=== PATIENT | male | born 1965 | race Caucasian/White ===

== ENCOUNTER 2020-06-09 23:06 | Emergency (ER) | payer BC, SELFPAY ==
[2020-06-09 23:08] VITALS: BP 164/92; PULSE 108; RESP 20; TEMP 36.7; O2SAT 94; BMI 40.4
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
[2020-06-09] MEDS: acetaminophen 500 mg Tablet 1000 MG PO (23:22)
[2020-06-09 23:34] VITALS: BP 164/92; RESP 18; O2SAT 96
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
[2020-06-10 01:09] VITALS: BP 154/82; PULSE 87; RESP 16; O2SAT 99
--- NOTE | 2020-06-14 11:08 | DCPLANNER ---
motor hotel manager was asked to schedule a follow up appointment for patient with a hand specialist in [place]. motor hotel manager faxed patients records to [facility] in [place] for review. motor hotel manager called patient and left a voicemail with patients to return egg caser phone call. motor hotel manager wanted to inform patient that a referral had been sent and to expecting a phone call from the clinic with appointment information.
--- NOTE | 2020-06-17 14:56 | DCPLANNER ---
Patient has a follow up appointment scheduled for Monday, June 29, 2020 at 12:[address] [place] [facility] [place] with appointment information.
--- NOTE | 2020-08-03 12:08 | DCPLANNER ---
Patient had a follow up appointment scheduled with [facility] - patient did attend the appointment.
== END 2020-06-10 01:11 | disposition home or self-care (01) ==
PROVIDERS: Emergency Provider Emergency Medicine; PCP Nurse Practitioner Family
DX: S06.0X0A Concussion without loss of consciousness, initial encounter (principal); S40.012A Contusion of left shoulder, initial encounter; Y04.8XXA Assault by other bodily force, initial encounter
CPT/HCPCS: 12345; 70450; 72125; 73030; 73110; 99282; 99283

== ENCOUNTER 2020-06-13 18:22 | Outpatient (CLI) | payer BC, SELFPAY ==
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
== END 2020-06-13 18:23 | disposition home or self-care (01) ==
LOC: RAD 18:23
PROVIDERS: PCP Nurse Practitioner Family; Visit Provider Family Medicine
DX: M25.532 Pain in left wrist (principal)
CPT/HCPCS: 73110

== ENCOUNTER 2022-11-11 14:37 | Emergency (ER) | payer BC, SELFPAY ==
[2022-11-11] VITALS (43 sets, daily range): BP systolic 142–188; BP diastolic 87–109; PULSE 58–80; RESP 0–22; TEMP 36.6; O2SAT 93–98; BMI 38.2
--- NOTE | 2022-11-11 14:39 | ECG_ITS ---
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 Measurements Intervals [place] Rate: 72 P: 20 AL: 164 QRS: -62 QRSD: 118 T: 45 QT: 407 QTc: 448 Interpretive Statements SINUS RHYTHM PATTERN CONSISTENT WITH PULMONARY DISEASE LEFT ANTERIOR FASCICULAR BLOCK [QRS AXIS <= -45, QR IN I, RS IN II] No previous ECG available for comparison Electronically Signed On 11-11-2022 20:05:11 CORRECTIONAL COOK by Sydnie Schaefer M.D. [id number]
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
--- NOTE | 2022-11-11 14:48 | W.ED.CHESTPA ---
HPI - Chest Pain General: Chief Complaint: Chest Pain Stated Complaint: CHEST PAIN Time Seen by Provider: 11/11/22 14:38 Source: patient Mode of arrival: EMS History of Present Illness: 56-year-old male presents emergency room with complaint of pain. He describes his pain was in his back radiating into the epigastrium and into his left upper quadrant and up into his chest. Just prior to that patient had been eating some fried jalapeno peppers. He has a history of reflux. He did receive 325 nitro on route he also had an inch of Nitropaste states the symptoms have resolved. 30 years ago evidently he had chest pain that ended up being diagnosed as GI and Sorcini a normal stress test. Is not had any issues since then. He has a history of hypertension he smokes occasional cigars he is diabetic. Prior to today had no other episodes of chest pain or discomfort. MD complaint: chest pain Onset (ago): minute(s) Timing of current episode: episodic Prior episodes: No Onset: during rest Pain location: other (Back) Pain radiation: other (Epigastrium left upper quadrant and chest) Quality: sharp Relieving factors: nitroglycerin Exacerbating factors: nothing Associated symptoms: Reports abdominal pain; Deny diaphoresis, dyspnea, fever(s), leg edema, nausea, palpitations, sense of impending doom, syncope or vomiting Treatment prior to arrival: aspirin and nitroglycerin Review of Systems Const: Denies: fever(s), chills, fatigue, malaise or diaphoresis ENMT: Denies: throat pain, ear or mastoid pain, nasal discharge or nasal congestion Card: Reports: chest pain; Denies: palpitations, irregular heart rhythm, edema, swelling of feet/ankles or syncope Resp: Denies: dyspnea, productive cough or non-productive cough GI: Reports: abdominal pain; Denies: nausea or vomiting : Denies: flank pain, dysuria, urinary frequency or urinary urgency Skin/Breast: Denies: rash or pruritus PFS ED PFSH: Medical History (Updated 11/19/22 @ 00:01 by JUDY Whitaker) GERD (gastroesophageal reflux disease) HTN (hypertension) Social History (Updated 11/11/22 @ 14:57 by Shayan Reyez DO) Smoking and tobacco status: current some day smoker cigars Cigar details: Occasional Alcohol intake: current Physical Exam Const: COMMON NORMALS: no acute distress GENERAL APPEARANCE: cooperative and comfortable ORIENTATION/CONSCIOUSNESS: Yes awake, Yes oriented to person, Yes oriented to place and Yes oriented to time HENMT: COMMON NORMALS: normocephalic, atraumatic and hearing grossly normal bilaterally HEAD & SCALP: normocephalic and atraumatic Eye: COMMON NORMALS: Equal, round and reactive pupils present, EOMs intact bilaterally, conjunctivae normal and no scleral icterus CONJUNCTIVA: Yes conjunctivae normal PUPIL: Yes Equal, round and reactive pupils present Neck/C-Spine: COMMON NORMALS: full ROM, no lymphadenopathy, supple and no JVD Lymph: LYMPHATIC: no lymphadenopathy noted and no lymphedema noted Resp: COMMON NORMALS: normal respiratory effort, No retractions, No use of accessory muscles and clear to auscultation bilaterally AUSCULTATION: clear to auscultation bilaterally Cardio: COMMON NORMALS: no JVD, regular rate, regular rhythm and No murmurs present (Cardio) RATE: regular rate RHYTHM: regular rhythm GI: COMMON NORMALS: Soft to palpation and No hepatosplenomegaly present AUSCULTATION: Yes normoactive bowel sounds PALPATION: Yes Soft to palpation, No Tenderness to palpation present (GI), No Guarding due to palpation present (GI) and Yes No hepatosplenomegaly present Extremity: COMMON NORMALS: normal to inspection, capillary refill normal, no clubbing, cyanosis or edema, no calf tenderness and no pedal edema Neuro: SENSORIUM/ORIENTATION: Yes oriented to person, Yes oriented to place and Yes oriented to time Skin: COMMON NORMALS: no rashes or lesions noted GENERAL SKIN EXAM: no rashes or lesions noted Course Vital Signs: Vital signs: Vital Signs Temperature 97.9 F 11/11/22 14:38 Pulse Rate 66 11/11/22 18:35 Respiratory Rate 10 L 11/11/22 18:35 Blood Pressure 162/104 11/11/22 18:40 Pulse Oximetry 96 11/11/22 18:35 Oxygen Delivery Me thod 11/11/22 15:17 MDM - Chest Pain Medical Decision Making Labs imaging and EKG reviewed as found in the chart no acute ST changes noted troponins unremarkable. Suspect may be more likely GI in nature. All with patient start metoprolol 40 mg daily. His blood pressure is also up. We will have him start isosorbide mononitrate 30 mg daily and baby aspirin daily. Avoid exertional activities Case management to make arrangements for outpatient stress testing return to the ER if has further problems. Medical Records I reviewed the patient's medical records. Lab Data I reviewed the patient's lab results. 11/11/22 15:10 11/11/22 15:10 Radiology Impressions Chest X-Ray 11/11/22 14:39 IMPRESSION: No acute findings. Laboratory Results WBC 12.1 10^3/uL (4.0-10.0) H 11/11/22 15:10 RBC 4.48 10^6/uL (4.1-5.3) 11/11/22 15:10 Hgb 14.9 g/dL (11.7-16.6) 11/11/22 15:10 Hct 44.1 % (42.0-52.0) 11/11/22 15:10 MCV 98.4 fl (80-94) H 11/11/22 15:10 MCH 33.3 pg (28.0-34.0) 11/11/22 15:10 MCHC 33.8 g/dL (30.0-36.0) 11/11/22 15:10 RDW 12.1 % (12.1-15.1) 11/11/22 15:10 Plt Count 207 10^3/cmm (130-400) 11/11/22 15:10 MPV 10.6 fL (7.4-10.4) H 11/11/22 15:10 Neut % (Auto) 75.9 % 11/11/22 15:10 Lymph % (Auto) 11.8 % 11/11/22 15:10 [place] % (Auto) 9.7 % 11/11/22 15:10 Eos % (Auto) 1.7 % 11/11/22 15:10 Baso % (Auto) 0.4 % 11/11/22 15:10 Neut # (Auto) 9.15 10^3/uL (1.8-7.7) H 11/11/22 15:10 Lymph # (Auto) 1.4 10^3/uL (0.8-4.8) 11/11/22 15:10 [place] # (Auto) 1.2 10^3/uL (0.2-0.9) H 11/11/22 15:10 Eos # (Auto) 0.2 10^3/uL (0.0-0.8) 11/11/22 15:10 Baso # (Auto) 0.1 10^3/uL (0.0-0.1) 11/11/22 15:10 Nucleated RBC % (auto) 0 % 11/11/22 15:10 Nucleated RBCs # 0.0 /100WBC 11/11/22 15:10 Sodium 139 mmol/L (136-145) 11/11/22 15:10 Potassium 4.2 mmol/L (3.5-5.1) 11/11/22 15:10 Chloride 103 mmol/L (98-107) 11/11/22 15:10 Carbon Dioxide 25 mmol/L (22-29) 11/11/22 15:10 Anion Gap 15.2 (5-19) 11/11/22 15:10 BUN 18 mg/dL (6-20) 11/11/22 15:10 Creatinine 1.0 mg/dL (0.7-1.2) 11/11/22 15:10 GFR Calculation 76.7 mL/min (90-130) L 11/11/22 15:10 Glucose 149 mg/dL (65-115) H 11/11/22 15:10 Calculated Osmolality 293 mOsm/kg (285-295) 11/11/22 15:10 Calcium 9.6 mg/dL (8.5-10.5) 11/11/22 15:10 Total Bilirubin 0.8 mg/dL (0.15-1.2) 11/11/22 15:10 AST 116 U/L (0-40) H 11/11/22 15:10 ALT 75 U/L (0-41) H 11/11/22 15:10 Alkaline Phosphatase 83 U/L (40-130) 11/11/22 15:10 Troponin T Baseline 12 ng/L (0-15) 11/11/22 15:10 Troponin T 120 Minute 9.64 ng/L (0-15) 11/11/22 16:10 Delta Troponin T -2.36 ABS# (0-10) L 11/11/22 16:10 Total Protein 7.6 g/dL (6.6-8.7) 11/11/22 15:10 Albumin 4.6 g/dL (3.5-5.2) 11/11/22 15:10 Globulin 3.0 g/dL (1.3-4.6) 11/11/22 15:10 Discharge Plan Discharge Patient Disposition: Home Clinical Impression: Atypical chest pain Condition: Stable Prescriptions: New Protonix 40 mg tablet,delayed release (DR/EC) 40 mg PO DAILY Qty: 30 0RF aspirin 81 mg tablet,delayed release (DR/EC) 81 mg PO DAILY Qty: 30 0RF isosorbide mononitrate 30 mg tablet extended release 24 hr 30 mg PO DAILY Qty: 30 0RF Discharge Orders: Discharge ED (Routine); Ordered 11/11/22 Ordered By: Shayan Reyez Referrals: Tiara Marlow APN [Primary Care Provider] - Discharge Diet: Usual diet Discharge Activity: Increase activity as tolerated Patient Instructions: Opioid Safety, Pain Management Activity Restrictions/Additional Instructions: You were seen today for atypical chest pain. Based on your history suspect this is more related to reflux. Your EKG and cardiac enzymes were negative. We will start you on Protonix 40 mg once a day additionally your blood pressure is elevated would recommend that you take 81 mg of aspirin daily and we will start you on isosorbide mononitrate. Follow-up with your primary care doctor within the next week to reevaluate your blood pressure. Coding Level of Care Code ED Material Control Manager for [facility] Exam Comprehensive
[2022-11-11 15:23] LABS: Basophils # 0.1 10^3/uL (0.0-0.1); Basophils % 0.4 %; Eosinophils # 0.2 10^3/uL (0.0-0.8); Eosinophils % 1.7 %; Hematocrit 44.1 % (42.0-52.0); Hemoglobin 14.9 g/dL (11.7-16.6); Lymphocytes # 1.4 10^3/uL (0.8-4.8); Lymphocytes % 11.8 %; Mean Corpuscular HGB Conc 33.8 g/dL (30.0-36.0); Mean Corpuscular Hemoglobin 33.3 pg (28.0-34.0); Mean Corpuscular Volume 98.4 fl (80-94); Mean Platelet Volume 10.6 fL (7.4-10.4); Monocytes # 1.2 10^3/uL (0.2-0.9); Monocytes % 9.7 %; Neutrophils # 9.15 10^3/uL (1.8-7.7); Neutrophils % 75.9 %; Nucleated Red Blood Cells % 0 %; Platelet Count 207 10^3/cmm (130-400); Red Blood Count 4.48 10^6/uL (4.1-5.3); Red Cell Distribution Width 12.1 % (12.1-15.1); White Blood Count 12.1 10^3/uL (4.0-10.0)
[2022-11-11 16:00] LABS: Alanine Aminotransferase 75 U/L (0-41); Albumin Level 4.6 g/dL (3.5-5.2); Alkaline Phosphatase 83 U/L (40-130); Anion Gap 15.2 (5-19); Aspartate Amino Transferase 116 U/L (0-40); Blood Urea Nitrogen 18 mg/dL (6-20); Calcium 9.6 mg/dL (8.5-10.5); Carbon Dioxide 25 mmol/L (22-29); Chloride 103 mmol/L (98-107); Creatinine Clr Calc Pharmacy 117.7479; Glomerular Filtration Rate 76.7 mL/min (90-130); Glucose 149 mg/dL (65-115); Osmolality Calculated 293 mOsm/kg (285-295); Potassium 4.2 mmol/L (3.5-5.1); Sodium 139 mmol/L (136-145); Total Bilirubin 0.8 mg/dL (0.15-1.2); Total Protein 7.6 g/dL (6.6-8.7)
[2022-11-11 16:01] LABS: Troponin(5th) Baseline 12 ng/L (0-15)
[2022-11-11 16:41] LABS: Troponin 5 2HR 9.64 ng/L (0-15)
--- NOTE | 2022-11-11 17:11 | ECG_ITS ---
[facility] Test Date: 2022-11-11 Pat Name: Sarthak Domingo Department: Room: Gender: Male Business Analytics Specialist: : [id number] Requested By: Shayan Arboleda Order Number: [id number] Shine MD: Sydnie Schaefer M.D. Measurements Intervals [place] Rate: 63 P: 18 [place]: 168 QRS: -58 QRSD: 128 T: 31 QT: 425 QTc: 437 Interpretive Statements SINUS RHYTHM LEFT ANTERIOR FASCICULAR BLOCK [QRS AXIS <= -45, QR IN I, RS IN II] Compared to ECG 11/11/2022 15:01:06 No significant changes Electronically Signed On 11-11-2022 20:23:45 LENS COATING TECHNICIAN by Sydnie Schaefer M.D. [email or web address]
[2022-11-11 17:36] LABS: Troponin 5 2HR Delta -2.36 ABS# (0-10)
== END 2022-11-11 18:46 | disposition home or self-care (01) ==
PROVIDERS: Emergency Provider Family Medicine; PCP Nurse Practitioner Family
DX: R07.89 Other chest pain (principal); I10 Essential (primary) hypertension; F17.210 Nicotine dependence, cigarettes, uncomplicated
CPT/HCPCS: 36415; 71045; 80053; 84484; 85025; 93005; 99285